=== PATIENT | female | born 1935 | race Asian ===

== ENCOUNTER → 2017-02-22 | Outpatient (CLI) | payer OTHER, MEDICAID | LOC: CIMAGING 16:25 | PROVIDERS: ATTEND Physician Assistant | DX: K59.00 Constipation, unspecified (principal) | CPT/HCPCS: 74020-PO ==

== ENCOUNTER → 2017-03-10 | Outpatient (CLI) | payer OTHER, MEDICAID | LOC: CIMAGING 11:46 → EDSTATUS 11:47 → CIMAGING 11:48 | PROVIDERS: ATTEND Family Medicine | DX: J90 Pleural effusion, not elsewhere classified (principal) | CPT/HCPCS: 71010-PO; 71020-PO ==

== ENCOUNTER → 2017-03-15 | Outpatient (CLI) | payer OTHER, MEDICAID ==
[~2017-03-15] MED LIST: IOPAMIDOL (ISOVUE 370) 100 ML BTL IV ONE
== END ==
LOC: CIMAGING 09:13
PROVIDERS: ATTEND Internal Medicine Cardiovascular Disease
DX: I77.810 Thoracic aortic ectasia (principal); J90 Pleural effusion, not elsewhere classified; Z85.3 Personal history of malignant neoplasm of breast; E04.2 Nontoxic multinodular goiter; Z99.2 Dependence on renal dialysis; Z90.11 Acquired absence of right breast and nipple
CPT/HCPCS: 71275; Q9967

== ENCOUNTER → 2017-03-24 | Outpatient (CLI) | payer OTHER, MEDICAID ==
[~2017-03-24] MED LIST changes: -IOPAMIDOL (ISOVUE 370) 100 ML BTL IV ONE; +LIDOCAINE 1% 300 MG/30 ML SDV ONE
[2017-03-24 14:13] LABS: LD, PLEURAL FLUID 329 IU/L
== END ==
LOC: FIMAGING 11:40
PROVIDERS: ATTEND Internal Medicine Pulmonary Disease
PROC: 0W9B3ZZ Drainage of Left Pleural Cavity, Percutaneous Approach (ICD-10-PCS; principal; 2017-03-24)
DX: Z13.820 Encounter for screening for osteoporosis (principal); M81.0 Age-related osteoporosis without current pathological fracture; J90 Pleural effusion, not elsewhere classified; Z85.3 Personal history of malignant neoplasm of breast; Z78.0 Asymptomatic menopausal state

== ENCOUNTER → 2017-05-16 | Outpatient (CLI) | payer OTHER, MEDICAID | LOC: CIMAGING 12:49 | PROVIDERS: ATTEND Internal Medicine Hematology & Oncology | DX: J90 Pleural effusion, not elsewhere classified (principal) | CPT/HCPCS: 71022-PO ==

== ENCOUNTER → 2017-08-31 | Outpatient (CLI) | payer OTHER, MEDICAID | LOC: CLAB 10:51 | PROVIDERS: ATTEND Internal Medicine Pulmonary Disease | DX: J90 Pleural effusion, not elsewhere classified (principal) | CPT/HCPCS: 71020-PO ==

== ENCOUNTER → 2017-09-02 | Outpatient (CLI) | payer OTHER, MEDICAID | LOC: FIMAGING 12:17 | PROVIDERS: ATTEND Family Medicine | PROC: 0W9B3ZZ Drainage of Left Pleural Cavity, Percutaneous Approach (ICD-10-PCS; principal; 2017-09-02) | DX: J90 Pleural effusion, not elsewhere classified (principal); N19 Unspecified kidney failure; Z85.3 Personal history of malignant neoplasm of breast ==

== ENCOUNTER → 2017-11-01 | Outpatient (CLI) | payer OTHER, MEDICAID | LOC: CIMAGING 13:00 | PROVIDERS: ATTEND Family Medicine | DX: N63.21 Unspecified lump in the left breast, upper outer quadrant (principal) | CPT/HCPCS: 76641-PO ==

== ENCOUNTER → 2018-01-03 | Outpatient (CLI) | payer OTHER, MEDICAID | LOC: CIMAGING 16:26 | PROVIDERS: ATTEND Family Medicine | DX: M25.521 Pain in right elbow (principal) | CPT/HCPCS: 73080-PO ==

== ENCOUNTER → 2018-02-09 | Outpatient (CLI) | payer OTHER, MEDICAID | LOC: FIMAGING 09:35 | PROVIDERS: ATTEND Physician Assistant | DX: R10.13 Epigastric pain (principal); K57.10 Diverticulosis of small intestine without perforation or abscess without bleeding ==

== ENCOUNTER → 2018-08-16 | Outpatient (CLI) | payer OTHER, MEDICAID | LOC: CIMAGING 15:45 | PROVIDERS: ATTEND Internal Medicine Pulmonary Disease | DX: J90 Pleural effusion, not elsewhere classified (principal); I50.9 Heart failure, unspecified | CPT/HCPCS: 71046-PO ==

== ENCOUNTER 2018-12-19 12:05 | Inpatient (IN) | payer OTHER, MEDICAID ==
--- NOTE | 2018-12-19 12:27 | EDPHY ---
H & P Stated Complaint: multiple complaints - fatgiued, fever, and nausea started last tuesday Time Seen by Provider: 12/19/18 12:11 HPI/ROS: 83 yo F presents c/o fatigue, shortness of breath, fever. She does M/W/F hemodialysis and missed last Tuesday and was late yesterday so missed part of dialysis. Review of systems as per hpi General pos fever and chills, pos fatigue HEENT no eye pain no eye discharge. No eye redness, no sore throat Respiratory no cough, no shortness of breath Cardiac no chest pain, no peripheral edema GI no abdominal pain, no diarrhea, no constipation, no nausea, no vomiting no flank pain, no hematuria, no dysuria Musculoskeletal no myalgias, no joint pain Heme no easy bruising, no easy bleeding Endo no polyuria, no polydipsia Skin no rashes, no pruritus Neuro no syncope, no dizziness, no headaches Psych is no suicidal ideation, no homicidal ideation Source: Patient Exam Limitations: No limitations, Language barrier - Personal History Tetanus Vaccine Date: 2008 - Medical/Surgical History Hx Asthma: No Hx Chronic Respiratory Disease: No Hx Diabetes: Yes Hx Cardiac Disease: Yes Hx Renal Disease: Yes Hx Cirrhosis: No Hx Alcoholism: No Hx HIV/AIDS: No Hx Splenectomy or Spleen Trauma: No Other PMH: MASTECTOMY R BREAST, chemo. macular degenration. htn. hypothyroidism. hyperlipidemia. alpha thalessemia trait. heart failure, chronic kidney disease, osteopenia, Diabetes Mellites II, Sciatica, Degenerative disk disease, glaucoma, H.pylori ulcer - Family History Significant Family History: No pertinent family hx - Social History Smoking Status: Never smoked Alcohol Use: None Drug Use: None - Physical Exam Exam: petite elderly F tachypneic, room air pulse ox 60s saturates in high 90s on 4 liters alopecia puffy face eomi, anicteric neck jvd lungs diminished and wheeze left base heart rrr abd nabs soft, nt back no cvat ext trace edema neuro no focal weakness Constitutional: Initial Vital Signs Temperature (C) 37.4 C 12/19/18 12:05 Heart Rate 90 12/19/18 12:05 Respiratory Rate 24 H 12/19/18 12:05 Blood Pressure 184/94 H 12/19/18 12:05 O2 Sat (%) 60 L 12/19/18 12:05 O2 Delivery Mode Room Air O2 (L/minute) 4 Allergies/Adverse Reactions: azithromycin [From Zithromax] Allergy (Verified 04/16/16 13:10) Home Medications: Medication Instructions Recorded Brimonidine 0.15% [Alphagan P 1 drops EACHEYE BID 01/04/14 0.15%] Denosumab [Prolia] 60 mg SQ .[id number] 01/04/14 Dorzolamide/Timolol [Cosopt (*)] 1 drop EACHEYE DAILY 01/04/14 Fulvestrant [Faslodex] 500 mg IM .QMONTH 01/04/14 Insulin Glulisine [Apidra] 20 - 25 unit SQ AC PRN 01/04/14 amLODIPine BESYLATE [Norvasc 5 mg 10 mg PO DAILY #30 tab 01/16/14 (*)] Multivitamins [Multivitamin (*)] 1 each PO DAILY 03/22/16 Omeprazole [Prilosec 20 mg] 20 mg PO BID 03/22/16 Acetaminophen [Tylenol 325mg (*)] 650 mg PO Q4 PRN #0 tab 03/25/16 Hydrocodone/APAP 5/325 [[place] 1 - 2 tab PO Q4 PRN #20 tab 03/25/16 5/325 (*)] Compazine 04/16/16 Dilaudid 04/16/16 Gabapentin 04/16/16 Medical Decision Making - Diagnostics Imaging Results: Imaging Impressions Chest X-Ray 12/19/18 12:20 Impression: 1. Moderate to large consolidation and/or effusion left mid to lower lung. ED Course/Re-evaluation: pt seen and evaluation begun for multiple symptoms cxr large left pleural effusion vs consolidation ekg nsr , first degree avb labs creat 4 bnp 20, 800 trop 0.25- no ischemic changes on ekg, no chest pain Influenza negative ua pending, appears cloudy Ceftriaxone first dose given to cover urine infection, and possible CAP Imp dyspnea, pleural effusion vs consolidation renal failure likely uti fluid overload Plan discussed with hospitalist admit for further evaluation and treatment Differential Diagnosis: Differential diagnosis considered but not limited to Pleural effusion, fluid overload, pneumonia, renal failure, urosepsis, urinary tract infection, influenza - Data Points Laboratory Results: 12/19/18 12/19/18 12/19/18 12:40 12:31 12:30 POC Sodium 142 mEq/L mEq/L (135-145) POC Potassium 3.9 mEq/L mEq/L (3.3-5.0) POC Chloride 98.0 mEq/L mEq/L (97-110) POC Total CO2 26 mEq/L mEq/L (22-31) POC BUN 12 mg/dL mg/dL (7-23) POC Creatinine 4.1 mg/dL H mg/dL (0.6-1.0) POC Glucose 140 mg/dL H mg/dL (70-100) POC Lactic Acid Sajan 2.7 mmol/L H mmol/L (0.7-2.1) POC Calcium 9.2 mg/dL mg/dL (8.5-10.4) Magnesium POC Total Bilirubin 0.4 mg/dL mg/dL (0.1-1.4) POC AST 45 IU/L IU/L (14-46) POC ALT 28 IU/L IU/L (9-52) POC Alk Phosphatase 97 IU/L IU/L (38-126) POC Troponin I 0.25 ng/mL H ng/mL (0.00-0.08) NT-Pro-B Natriuret Pep POC Total Protein 7.6 g/dL g/dL (6.3-8.2) POC Albumin 3.5 g/dL g/dL (3.5-5.0) Beta-Hydroxybutyrate Urine Color Urine Appearance Urine pH Ur Specific [place] Urine Protein Urine Ketones Urine Blood Urine Nitrate Urine Bilirubin Urine Urobilinogen Ur Leukocyte Esterase Urine Glucose 12/19/18 12/19/18 12:20 12:20 POC Sodium POC Potassium POC Chloride POC Total CO2 POC BUN POC Creatinine POC Glucose POC Lactic Acid Sajan POC Calcium Magnesium 2.1 mg/dL mg/dL (1.6-2.3) POC Total Bilirubin POC AST POC ALT POC Alk Phosphatase POC Troponin I NT-Pro-B Natriuret Pep 56449 pg/mL H pg/mL (0-450) POC Total Protein POC Albumin Beta-Hydroxybutyrate Pending Urine Color Pending Urine Appearance Pending Urine pH Pending Ur Specific [place] Pending Urine Protein Pending Urine Ketones Pending Urine Blood Pending Urine Nitrate Pending Urine Bilirubin Pending Urine Urobilinogen Pending Ur Leukocyte Esterase Pending Urine Glucose Pending Medications Given: Discontinued Medications Albuterol/Ipratropium (Duoneb) 3 ml IH EDNOW ONE Stop: 12/19/18 12:30 Last Admin: 12/19/18 13:16 Dose: 3 ml Ceftriaxone Sodium/Dextrose (Rocephin 1 Gm (Premix)) 50 mls @ 100 mls/hr IV EDNOW ONE PRN Reason: Protocol Stop: 12/19/18 14:00 Last Admin: 12/19/18 13:40 Dose: 50 mls Point of Care Test Results: CBC CBC Collection Date 12/19/18 CBC Collection Time 12:20 WBC 4.97 RBC 4.58 HGB 10.5 HCT 35.1 PLT 149 Neut # 4.06 Neut 81.7 LYMPH # 0.48 LYMPH 9.7 MCV 76.6 Chemistry 12/19/18 12/19/18 12:31 12:30 POC Sodium 142 mEq/L mEq/L (135-145) POC Potassium 3.9 mEq/L mEq/L (3.3-5.0) POC Chloride 98.0 mEq/L mEq/L (97-110) POC Total CO2 26 mEq/L mEq/L (22-31) POC BUN 12 mg/dL mg/dL (7-23) POC Creatinine 4.1 mg/dL H mg/dL (0.6-1.0) POC Glucose 140 mg/dL H mg/dL (70-100) POC Calcium 9.2 mg/dL mg/dL (8.5-10.4) POC Total Bilirubin 0.4 mg/dL mg/dL (0.1-1.4) POC AST 45 IU/L IU/L (14-46) POC ALT 28 IU/L IU/L (9-52) POC Alk Phosphatase 97 IU/L IU/L (38-126) POC Troponin I 0.25 ng/mL H ng/mL (0.00-0.08) POC Total Protein 7.6 g/dL g/dL (6.3-8.2) POC Albumin 3.5 g/dL g/dL (3.5-5.0) Blood Gas/Lactic Acid-Venous 12/19/18 12:40 POC Lactic Acid Sajan 2.7 mmol/L H mmol/L (0.7-2.1) Influenza PCR Flu Nasal Swab Collection Date 12/19/18 Flu Nasal Swab Collection Time 12:35 Influenza A Result Not Detected Influenza B Result Not Detected Departure - Departure Disposition: [facility] Inpatient Acute Clinical Impression: Renal failure, Pleural effusion, Chronic kidney disease, stage IV (severe) Condition: Fair
[2018-12-19] MEDS ORDERED: IPRATROPIUM/ALBUTEROL 3 ML DEYVIAL IH ONE (12:29)
--- NOTE | 2018-12-19 12:41 | CPEKG ---
Test Reason : OPEN Blood Pressure : / mmHG Vent. Rate : 082 BPM Atrial Rate : 083 BPM P-R Int : 221 ms QRS Dur : 129 ms QT Int : 455 ms P-R-T Axes : -18 -52 033 degrees QTc Int : 532 ms Sinus rhythm Prolonged GA interval Probable left atrial enlargement Right bundle branch block Inferior infarct, old Anterior infarct, old Confirmed by Huma Vila ([id number]) on 12/19/2018 12:40:33 PM Referred By: Huma Vila Confirmed By:Huma Vila
[2018-12-19] MEDS ORDERED: ASPIRIN 81 MG CHEWABLE TAB PO ONE (13:52)
[2018-12-19] MEDS ORDERED: D50W 25 GM/50 ML SYR IVP PRN (17:36)
[2018-12-19] MEDS ORDERED: ONDANSETRON DISINTEGRATING 4 MG TAB PO PRN (18:11)
[2018-12-19] MEDS ORDERED: ONDANSETRON 4 MG/2 ML VIAL IVP PRN (18:11)
[2018-12-19] MEDS: INSULIN LISPRO 100 UNIT/ML SC SCH (18:27)
[2018-12-19] MEDS ORDERED: IPRATROPIUM/ALBUTEROL 3 ML DEYVIAL IH PRN (18:28)
[2018-12-19] MEDS: ACETAMINOPHEN 325 MG TAB PO PRN (18:34)
--- NOTE | 2018-12-19 19:31 | PDGENHP ---
<Jayna Francis - Last Filed: 12/19/18 20:00> History and Physical - Chief Complaint Fatigue, fever, nausea - History of Present Illness HPI: 83 y/o female with hx of ESRD on dialysis, HTN, DM II, CHF presents as a direct admit from urgent care for fatigue, fever and nausea. This is my first encounter with the pt who was seen in her room. Fwzkyxij-pb-oed and family were at bedside with the pt. Pt speaks little Urdu, primary language is [place]. She reports progressively feeling tired and general malaise feeling. Denies vomiting. She rarely produces urine however she was found to have a UTI and was treated with PO abx the last 6-7 days. Upon arrival to urgent care she was sating in the 60s on RA and was tachypneic. She receives dialysis MWF, she missed last Tuesday and yesterday only completed 3 hours worth instead of 4 hours. She is being admitted for further treatment and monitoring. History Information - Allergies/Home Medication List Allergies/Adverse Reactions: azithromycin [From Zithromax] Allergy (Verified 04/16/16 13:10) Home Medications: Omeprazole [Prilosec 20 mg] 20 mg PO DAILY 03/22/16 [Last Taken 03/21/16] Docusate Sodium [Colace 100 MG (*)] 100 mg PO DAILY 12/19/18 [Last Taken Unknown ] Famotidine [Pepcid 20 MG (*)] 20 mg PO AD 12/19/18 [Last Taken Unknown] Gabapentin [Neurontin 100 MG (*)] 200 mg PO SUMOWEFR@21 12/19/18 [Last Taken Unknown] Prochlorperazine Maleate [Compazine 10mg (*)] 10 mg PO Q6 PRN 12/19/18 [Last Taken Unknown] amLODIPine BESYLATE [Amlodipine Besylate] 10 mg PO DAILY 12/19/18 [Last Taken Unknown] I have personally reviewed and updated: family history, medical history, social history, surgical history Past Medical History: ESRD 2/2 diabetic nephropathy, HTN, DM II, Breast CA s/p mastectomy, CHF 2/2 diastolic dysfunction - Surgical History Reports: mastectomy - Family History Additional family history: Mother in a car accident. Father is unknown. - Social History Smoking Status: Never smoked Alcohol Use: None Drug Use: None Review of Systems Review of Systems: ROS: 10pt was reviewed & negative except for what was stated in HPI & below Physical Exam Physical Exam: Lab data and imaging were reviewed. Case discussed with admitting physician, Dr. Pepe Coffman BNP: 20,800 Lactic acid: 2.1 BUN/Cr: 12/4.1 Trop: 0.25 CXR: moderate to large consolidation and/or effusion left mid to lower lung Temp Pulse Resp BP Pulse Ox 36.9 C 88 16 183/83 H 98 12/19/18 15:40 12/19/18 15:40 12/19/18 15:40 12/19/18 15:40 12/19/18 15:40 O2 (L/minute) 4 Constitutional: appears nourished, uncomfortable Eyes: PERRL, anicteric sclera, EOMI Ears, Nose, Mouth, Throat: moist mucous membranes, hearing normal, ears appear normal, no oral mucosal ulcers Cardiovascular: regular rate and rhythym, no murmur, rub, or gallop, JVD, No edema Peripheral Pulses: 2+: dorsalis-pedis (R) (Radial 2+), dorsalis-pedis (L) ( Radial 2+) Respiratory: expiratory wheeze Gastrointestinal: normoactive bowel sounds, no palpable masses, tenderness Genitourinary: no bladder fullness, no bladder tenderness Skin: warm, normal color, no rashes or abrasions, no fluctuance, no induration, other (Left fistula-heard bruit, felt "thrill"), No mottled Musculoskeletal: full muscle strength, no muscle tenderness, normal joint ROM, no joint effusions Neurologic: AAOx3, sensation intact bilaterally, CN II-XII Intact Psychiatric: interacting appropriately, not anxious, not encephalopathic, thought process linear Lymph, Heme, Immunologic: no cervical LAD, no supraclavicular LAD Lab Data & Imaging Review POC Sodium 142 mEq/L (135-145) 12/19/18 12:30 POC Potassium 3.9 mEq/L (3.3-5.0) 12/19/18 12:30 POC Chloride 98.0 mEq/L (97-110) 12/19/18 12:30 POC Total CO2 26 mEq/L (22-31) 12/19/18 12:30 POC BUN 12 mg/dL (7-23) 12/19/18 12:30 POC Creatinine 4.1 mg/dL (0.6-1.0) H 12/19/18 12:30 POC Glucose 109 mg/dL (70-100) H 12/19/18 18:13 POC Lactic Acid Sajan 2.7 mmol/L (0.7-2.1) H 12/19/18 12:40 POC Calcium 9.2 mg/dL (8.5-10.4) 12/19/18 12:30 Magnesium 2.1 mg/dL (1.6-2.3) 12/19/18 12:20 POC Total Bilirubin 0.4 mg/dL (0.1-1.4) 12/19/18 12:30 POC AST 45 IU/L (14-46) 12/19/18 12:30 POC ALT 28 IU/L (9-52) 12/19/18 12:30 POC Alk Phosphatase 97 IU/L (38-126) 12/19/18 12:30 POC Troponin I 0.25 ng/mL (0.00-0.08) H 12/19/18 12:31 NT-Pro-B Natriuret Pep 04434 pg/mL (0-450) H 12/19/18 12:20 POC Total Protein 7.6 g/dL (6.3-8.2) 12/19/18 12:30 POC Albumin 3.5 g/dL (3.5-5.0) 12/19/18 12:30 Beta-Hydroxybutyrate 0.11 mmol/L (0.02-0.27) 12/19/18 12:20 Procalcitonin 0.55 ng/mL (0.02-0.10) H 12/19/18 13:43 Urine Color YELLOW 12/19/18 12:20 Urine Appearance CLOUDY 12/19/18 12:20 Urine pH 5.5 (5.0-7.5) 12/19/18 12:20 Ur Specific [place] >= 1.030 (1.002-1.030) 12/19/18 12:20 Urine Protein 3+ (NEGATIVE) H 12/19/18 12:20 Urine Ketones TRACE (NEGATIVE) H 12/19/18 12:20 Urine Blood 1+ (NEGATIVE) H 12/19/18 12:20 Urine Nitrate NEGATIVE (NEGATIVE) 12/19/18 12:20 Urine Bilirubin TNP 12/19/18 12:20 Urine Urobilinogen 0.2 EU (0.2-1.0) 12/19/18 12:20 Ur Leukocyte Esterase 1+ (NEGATIVE) H 12/19/18 12:20 Urine RBC 5-10 /hpf (0-3) H 12/19/18 12:20 Urine WBC 50-182 /hpf (0-3) H 12/19/18 12:20 Ur Epithelial Cells 3+ /lpf (NONE-1+) H 12/19/18 12:20 Amorphous Sediment PRESENT /hpf (NONE-1+) 12/19/18 12:20 Urine Bacteria 4+ /hpf (NONE SEEN) H 12/19/18 12:20 Urine Mucus 3+ /lpf (NONE-1+) H 12/19/18 12:20 Urine Glucose NEGATIVE (NEGATIVE) 12/19/18 12:20 Assessment & Plan Plan: 83 y/o female with hx of ESRD on dialysis, DM, HTN presents from urgent care hypoxemic and fatigue and has been actively treated for UTI. #Acute hypoxemic respiratory failure 2/2 suspected consolidation and/or effusion #Urinary tract infection #Diabetes Type II #ESRD Plan -Urine and blood cultures pending -Treating UTI with ceftriaxone IV -Initiated ISS and TID glucose checks for her DM -I spoke with Dr. Donaldson (office secretary) who is aware of the pt and her need of MWF dialysis. Dialysis tomorrow. -Cont tele/pulse ox monitoring; it has been noted by RN of pauses. Consult cards in AM. STAT echo pending. Cycle EKGs and trops. -Treat symptoms conservatively with duoneb, morphine and Zofran Diet: ADA VTE ppx: SCDs Code: Full Dispo: Admit to inpatient <Pepe Morfin - Last Filed: 12/20/18 00:17> History and Physical - History of Present Illness Review of Systems Review of Systems: Physical Exam Physical Exam: Temp Pulse Resp BP Pulse Ox 36.9 C 82 18 159/119 H 98 12/19/18 23:39 12/19/18 23:39 12/19/18 23:39 12/19/18 23:39 12/19/18 23:39 O2 (L/minute) 4 Lab Data & Imaging Review POC Sodium 142 mEq/L (135-145) 12/19/18 12:30 POC Potassium 3.9 mEq/L (3.3-5.0) 12/19/18 12:30 POC Chloride 98.0 mEq/L (97-110) 12/19/18 12:30 POC Total CO2 26 mEq/L (22-31) 12/19/18 12:30 POC BUN 12 mg/dL (7-23) 12/19/18 12:30 POC Creatinine 4.1 mg/dL (0.6-1.0) H 12/19/18 12:30 POC Glucose 126 mg/dL (70-100) H 12/19/18 20:59 POC Lactic Acid Sajan 2.7 mmol/L (0.7-2.1) H 12/19/18 12:40 POC Calcium 9.2 mg/dL (8.5-10.4) 12/19/18 12:30 Magnesium 2.1 mg/dL (1.6-2.3) 12/19/18 12:20 POC Total Bilirubin 0.4 mg/dL (0.1-1.4) 12/19/18 12:30 POC AST 45 IU/L (14-46) 12/19/18 12:30 POC ALT 28 IU/L (9-52) 12/19/18 12:30 POC Alk Phosphatase 97 IU/L (38-126) 12/19/18 12:30 POC Troponin I 0.25 ng/mL (0.00-0.08) H 12/19/18 12:31 Troponin I 0.984 ng/mL (0.000-0.034) H 12/19/18 21:00 NT-Pro-B Natriuret Pep 56647 pg/mL (0-450) H 12/19/18 12:20 POC Total Protein 7.6 g/dL (6.3-8.2) 12/19/18 12:30 POC Albumin 3.5 g/dL (3.5-5.0) 12/19/18 12:30 Beta-Hydroxybutyrate 0.11 mmol/L (0.02-0.27) 12/19/18 12:20 Procalcitonin 0.55 ng/mL (0.02-0.10) H 12/19/18 13:43 Urine Color YELLOW 12/19/18 12:20 Urine Appearance CLOUDY 12/19/18 12:20 Urine pH 5.5 (5.0-7.5) 12/19/18 12:20 Ur Specific [place] >= 1.030 (1.002-1.030) 12/19/18 12:20 Urine Protein 3+ (NEGATIVE) H 12/19/18 12:20 Urine Ketones TRACE (NEGATIVE) H 12/19/18 12:20 Urine Blood 1+ (NEGATIVE) H 12/19/18 12:20 Urine Nitrate NEGATIVE (NEGATIVE) 12/19/18 12:20 Urine Bilirubin TNP 12/19/18 12:20 Urine Urobilinogen 0.2 EU (0.2-1.0) 12/19/18 12:20 Ur Leukocyte Esterase 1+ (NEGATIVE) H 12/19/18 12:20 Urine RBC 5-10 /hpf (0-3) H 12/19/18 12:20 Urine WBC 50-182 /hpf (0-3) H 12/19/18 12:20 Ur Epithelial Cells 3+ /lpf (NONE-1+) H 12/19/18 12:20 Amorphous Sediment PRESENT /hpf (NONE-1+) 12/19/18 12:20 Urine Bacteria 4+ /hpf (NONE SEEN) H 12/19/18 12:20 Urine Mucus 3+ /lpf (NONE-1+) H 12/19/18 12:20 Urine Glucose NEGATIVE (NEGATIVE) 12/19/18 12:20 Assessment & Plan Assessment: 83 year old female with ESRD On HD sent for evaluation of hypoxia, confusion, and chest pain. Troponins iniatially only mildly elevated but rising on repeat, CXR with effusion, and consolidation and patient with substantial wheezing on examination. Patient did dialyze yesterday but likely needs hemodialysis in the morning. Would treat for pneumonia with Rocephin and is at her which would offer also cover for possible urinary tract infection. Would also consult IR for ultrasound-guided thoracentesis. Given her elevated troponin started heparin drip and continue cycle troponins. Other issues per Hue Francis NP.
[2018-12-20] MEDS ORDERED: HEPARIN 10,000 UNIT/10 ML MDV (1,000 UNIT/ML) IVP PRN (00:12)
[2018-12-20] MEDS ORDERED: AZITHROMYCIN IV 500 MG in NS 250 ML IV SCH (00:12)
[2018-12-20] MEDS ORDERED: HEPARIN/DEXTROSE 500 ML IV SCH (00:15)
[2018-12-20 00:54] LABS: INR 1.13 (0.83-1.16); PROTIME(PATIENT) 14.7 SEC (12.0-15.0)
[2018-12-20 00:55] LABS: PLATELET COUNT 127 10^3/uL (150-400)
[2018-12-20 05:23] LABS: PLATELET COUNT 128 10^3/uL (150-400)
--- NOTE | 2018-12-20 08:33 | PDMN ---
Medical Necessity Medical necessity: Pt meets inpt criteria per MD order and MCG M-540, Pleural Effusion, A-2 days. 83 y/o w/ESRD on dialysis presents to ED from Urgent care w/ hypoxemia, fatigue, and currently being treated for UTI, admitted w/AHRF (O2 sats in 60's on RA upon arrival) likely secondary to mod- large consolidation and/or effusion to L mid to lower lung as seen on CXR, elevated troponins trending up, and ongoing UTI despite out pt ABX therapy. IV ABX's, IV heparin, IV antiemetics, 4L suppl O2, may need US guided thoracentesis, cardiology and nephrology consults pending, bl and urine cultures pending. Anticiapte>2MN for ongoing eval/management of above.
--- NOTE | 2018-12-20 09:36 | ASMTLACE ---
CBE Acuity / Level of Answers: Yes Care: Did the patient have an inpatient admission? Comorbidities - select Answers: Congestive heart failure all that apply Diabetes (uncontrolled or controlled) Moderate or severe liver or renal disease Opioid dependence / Chronic pain Other Notes: HTN; HLD # of Emergency department Answers: 1-2 visits in the last 6 months Score: 16 Date Signed: 12/20/2018 09:35 AM Electronically Signed By:Ina Richardson
--- NOTE | 2018-12-20 10:27 | GCON ---
[f rep st] CONSULTATION DATE OF CONSULTATION: 12/20/2018 REASON FOR CONSULTATION: Opinion regarding end-stage kidney failure. HISTORY OF PRESENT ILLNESS: Ms. Reis is a very pleasant 83-year-old female who speaks no Fijian, a nd I do not speak her dialect of [place]ian, the information came through her daughter who speaks exce llent Fijian. Ms. Reis was in her usual state of health until about 7-10 days ago when she began having a urinary tract infection. She was treated with antibiotics. She had dialysis 1 week ago, missed on Tuesday an d had a truncated dialysis on Tuesday. Her daughter was out of town, but when she came back yesterday , her mother was not feeling well and looked poorly as well. She was brought to the Emergency Depart ment, had a urinary tract infection and possible pneumonia. She was admitted for further evaluation and management. REVIEW OF SYSTEMS: Is not obtainable from the patient. The daughter says she had not been having fe vers, chills, nausea or vomiting, chest pain. She did have shortness of breath and some cough. No s putum, hemoptysis, hematemesis, epistaxis, abdominal pain, diarrhea or constipation. PAST MEDICAL HISTORY: 1. End-stage kidney failure on 1-ltreh-itpggu dialysis. 2. Hypertension. 3. Type 2 diabetes. ALLERGIES: None, she may have had some upset stomach with azithromycin in the past. FAMILY HISTORY: Negative for renal failure. SOCIAL HISTORY: She does not use tobacco, alcohol, intravenous or recreational drugs. She is [place] and does not speak Fijian. REVIEW OF SYSTEMS: A complete 12-point review of systems was performed with pertinent positives and negatives as per the previous sections. PHYSICAL EXAMINATION: GENERAL: She is ill-appearing, but she is arousable and becomes alert. HEENT : Pupils are reactive to light. Extraocular movements are intact. Mucous membranes are moist. NEC K: She does have some mild JVD. No lymphadenopathy. CARDIOVASCULAR: Heart is regular, grade 1/6 s ystolic murmur. LUNGS: Bilateral rales. No rhonchi. Occasional wheezing. ABDOMEN: Bowel sounds positive. Soft, nontender, nondistended. EXTREMITIES: Positive for lower extremity edema. No cyan osis or clubbing. NEUROLOGIC: No asterixis. SKIN: Occasional bruising with no palpable lymphadeno nabor or lymphedema. MUSCULOSKELETAL: No effusions or tenderness. LABORATORY: Serum sodium is 135, potassium 3.9, chloride 99, CO2 28, BUN 23, creatinine 5.4, glucose 96, calcium 8.6, AST 70, ALT 59, alkaline phosphatase 95. WBC 3.9, hemoglobin 9.7, hematocrit 32, p latelet count 128,000. INR 1.13. Troponin 0.984 initially, now, up to 1.120. Procalcitonin is elev ated at 0.55. Urinalysis: Specific gravity greater than 1.030, pH 5.5, +3 protein, +1 blood, +4 xin teria. IMPRESSION: 1. End-stage kidney failure on [id number] dialysis, 2 of the last 3 dialysis treatments have bee n either truncated or missed. 2. Volume overload. 3. Possible pneumonia. 4. Urinary tract infection. 5. Diabetes. 6. Hypertension. RECOMMENDATIONS: 1. She is currently on azithromycin and Rocephin as well as albuterol for her UTI and pneumonia. 2. Hemodialysis today. 3. Ultrafiltration. 4. Continue her current therapies. Thank you for allowing me to participate in the care of your patient, Kirstie Reis. If there are any qu estions, please do not hesitate to contact us. We will be following along with you. /[id number]/MODL
[2018-12-20] MEDS: INSULIN LISPRO 100 UNIT/ML SC SCH ×3 (10:29→18:16)
--- NOTE | 2018-12-20 11:51 | ECHO ---
[email or web address] [address] Main: [phone] Fax: Transthoracic Echocardiogram Name: ADY GROSS MR#: [id number] Study Date: 12/19/2018 Study Time: 07:25 PM Date of : 1935 Age: 83 year(s) Height: 144.8 cm (57 in.) Weight: 55.79 kg (123 lb.) BSA: 1.46 m2 Gender: Female Examination: Echo Indication: Shortness of breath, fatigue Image Quality: Adequate Contrast: Requested by: Jayna Francis BP: 163 mmHg/107 mmHg Heart Rate: Rhythm: Indication: Shortness of breath, fatigue Procedure Staff Certified Pharmacy Technician: Pattie Snow RD Reading Physician: Renae Godwin MD Requesting Provider: Conclusions: Normal size left ventricle. Mild concentric LV hypertrophy. The ejection fraction is estimated to be 45-50 %. Grade 2 diastolic dysfunction (pseudonormalized LV filling pattern). Mid inferoseptal hypokinesis. Normal size right ventricle. Normal RV function. The left atrium is mildly dilated. Mild mitral annular calcification. Mild mitral valve regurgitation is present. Mild mitral valve stenosis is present. Mild to moderate tricuspid valve regurgitation. Right ventricular systolic pressure measures 34mmHg. Trivial pericardial effusion. There is a pleural effusion present. There is no previous echocardiogram for comparison. Measurements: Chambers Valvular Assessment AV/MV Valvular Assessment TV/PV Normal Normal Normal Name Value Range Name Value Range Name Value Range Ao Lyla (2D): 2.5 cm (1.4 cm-2.6 AV Vmax: 1.54 m/s (1 m/s-1.7 TR Vmax: 2.67 mm/s ( - ) cm) m/s) TR PGmax: 29 mmHg ( - ) IVSd (2D): 1.1 cm (0.6 cm-1.1 AV maxP mmHg ( - ) syst. PAP: 34 mmHg ( - ) cm) AV meanP mmHg ( - ) PV Vmax: 0.99 m/s (0.6 m/s-0.9 LVDd (2D): 4.2 cm (3.9 cm-5.3 KARAN (VTI): 1.4 cm ( - ) m/s) cm) MV E Vmax: 1.16 m/s ( - ) PV PGmax: 4 mmHg ( - ) LVDs (2D): 3.2 cm (2.1 cm-4 MV A Vmax: 1.32 m/s ( - ) cm) MV E/A: 0.88 ( - ) LVPWd (2D): 1.0 cm ( - ) MV meanP mmHg ( - ) Patient: ADY GROSS Study Date: 12/19/2018 Page 1 of 2 07:25 PM LVOTd 1.8 cm 1.8 cm mm MV PHT: 0.047 s ( - ) LVEF (BP): 56 % (>=55 %) MVA (Vmax): 1.6 m/s ( - ) EF Range: 45-50 % MVA (PHT): 4.7 s ( - ) RVDd(2D): 2.9 cm (1.9 cm-3.8 cmmm) Continued Measurements: Chambers Valvular Assessment AV/MV Valvular Assessment TV/PV Name Value Name Value Name Value LADs: 3.5 cm MV DecTime: 151 m/s CVP (est.): 5 mmHg LADs Lon.9 cm MV E' Septal: 0.06 m/s LA Area: 20.0 cm2 MV E/E' Septal: 20.20 LA Volume: 58 ml MV E/E' Lateral: 18.60 LA Volume Index: 39.7 ml/m2 MV VTI: 30.00 cm RA Area: 13.1 cm2 Additional Vessels Name Value Ao Ascendin.4 cm Inferior Vena Cava: 1.9 cm Findings: Left Ventricle: Normal size left ventricle. Mild concentric LV hypertrophy. Mildly reduced systolic LV function. The ejection fraction is estimated to be 45-50 %. Grade 2 diastolic dysfunction (pseudonormalized LV filling pattern). Mid inferoseptal hypokinesis. Right Ventricle: Normal size right ventricle. Normal RV function. Left Atrium: The left atrium is mildly dilated. Right Atrium: The right atrium is normal in size. Mitral Valve: The mitral valve is normal in appearance and function. Mild mitral annular calcification. Mild mitral valve regurgitation is present. Mild mitral valve stenosis is present. Aortic Valve: The aortic valve is tri-leaflet. No aortic valve stenosis is present. Trivial aortic valve regurgitation. Tricuspid Valve: The tricuspid valve is normal in appearance and function. Mild to moderate tricuspid valve regurgitation. The pulmonary artery pressure is normal. Right ventricular systolic pressure measures 34mmHg. Tricuspid regurgitation is eccentric. Pulmonic Valve: The pulmonic valve is normal in appearance and function. Aorta: The aorta is normal. Normal size aortic root measuring 2.5 cm. Normal size ascending aorta measuring 3.4 cm. IVC: The IVC is normal sized. Pericardium: Trivial pericardial effusion. There is pericardial fat. There is a pleural effusion present. (No Signature Object) Patient: ADY GROSS Study Date: 12/19/2018 Page 2 of 2 07:25 PM [id number]
[2018-12-20] MEDS ORDERED: NS 500 ML IV PRN (13:56)
[2018-12-20] MEDS ORDERED: EPOETIN ALFA 10,000 UNIT/ML VIAL SC SCH (13:57)
[2018-12-20] MEDS ORDERED: EPOETIN ALFA 10,000 UNIT/ML VIAL SC ONE (14:00)
[2018-12-20] MEDS: METOPROLOL SUCCINATE XR 25 MG TAB PO SCH (14:15)
[2018-12-20] MEDS: ATORVASTATIN CALCIUM 20 MG TAB PO SCH (14:15)
[2018-12-20] MEDS: ASPIRIN 81 MG CHEWABLE TAB PO SCH (14:15)
--- NOTE | 2018-12-20 14:28 | ASMTCMCOM ---
CM Note CM Note Notes: Pt is an 83 yo F, presents with pleural effusion, dyspenea, renal failure and positive trop. Pt's primary language is [place], speaks limited Israeli. Chart reviewed and pt discussed in rounds for discharge planning. Pt has a supportive family. PT evals pending. Plan: TBD Date Signed: 12/20/2018 02:27 PM Electronically Signed By:JAS Hussein
[2018-12-20] MEDS: ACETAMINOPHEN 325 MG TAB PO PRN ×2 (14:30→22:38)
[2018-12-20] MEDS ORDERED: IOPAMIDOL (ISOVUE-300) 100 ML BTL ONE (16:55)
--- NOTE | 2018-12-20 17:00 | HOSPPROG ---
Hospitalist Progress Note Assessment/Plan: 83 yo F w esrd a/w shortness of breath, L sided efusion/infiltrate, + trop w abnl ekg and wma cad: no known cad not clear that this is ACS and trop may be demand or toxic in setting of medical illness that said, very high likelihood of cad 1. stop heparin at 12 a 2. cardiology has seen, needs ischemic eval 3. trop trending down LLL infiltrate: 1. chest CT 2. thoracentesis in AM 3. h/o breast CA noted, send cytology 4. treat as CAP, shlomo hoffmann esrd: HD on schedule uti: unlikely anemia: check Fe studies epo dispo: inpt Subjective: case d/w dr day. chest images reviewed/interp by me Objective: Vital Signs Temp Pulse Resp BP Pulse Ox 37.4 C 95 18 150/67 H 94 12/20/18 14:33 12/20/18 14:33 12/20/18 14:33 12/20/18 14:33 12/20/18 14:33 Laboratory Results 12/20/18 05:10 12/20/18 05:10 12/19/18 12/20/18 12/21/18 05:59 05:59 05:59 Intake Total 400 Output Total 100 Balance 300 PT 14.7 SEC (12.0-15.0) 12/20/18 00:28 INR 1.13 (0.83-1.16) 12/20/18 00:28 - Physical Exam Constitutional: no apparent distress, appears nourished Eyes: PERRL, anicteric sclera Ears, Nose, Mouth, Throat: moist mucous membranes, hearing normal Cardiovascular: regular rate and rhythym, no murmur, rub, or gallop Respiratory: other (absent breath sounds at L base. good air movement on R) Gastrointestinal: normoactive bowel sounds, soft, non-tender abdomen Genitourinary: no bladder fullness, No burroughs in urethra Skin: warm, normal color Musculoskeletal: full muscle strength Neurologic: AAOx3 ICD10 Worksheet Patient Problems: Problems Problem Status Onset Chronic kidney disease, stage IV (severe) Acute Pleural effusion Acute Renal failure Acute Altered mental status Acute CHF (congestive heart failure) Acute Chronic Disease Mgmt/Transitional Care Acute Delirium Acute Edema Acute Palliative care encounter Acute
--- NOTE | 2018-12-20 19:07 | GCON ---
[f rep st] CONSULTATION CARDIOLOGY CONSULT CHIEF COMPLAINT: Dyspnea and positive troponin. HISTORY OF PRESENT ILLNESS: We were asked by Dr. Cantu to visit with the patient. The patient is an 83-year-old female who speaks the Hmong dialect. History is from chart review and discussion with t he patient's daughter who is at the bedside and speaks Occitan fluently. The patient has a history of hypertension, diabetes, end-stage renal disease, on dialysis, mildly dil ated ascending aorta, and right bundle branch block with left anterior fascicular block. She was adm itted from the emergency department last evening with weakness, malaise, hypoxia, and reported fever at home. She was found to have a minimally elevated troponin, large left pleural effusion, and evide nce of ongoing urinary tract infection. The week prior, she had been diagnosed with UTI and started on oral Bactrim. She missed dialysis las t Tuesday and then had a truncated session last Tuesday, so therefore her daughter reports that she did appear to have some abdominal bloating and facial edema. The patient has not had anginal-quality chest pain but has been coughing for 4 days productive of whi te phlegm. She does have chest pain when she coughs. She is somewhat dyspneic. She denies lower ex tremity edema. She gives no history of known coronary disease and did have a normal myocardial perfu belia study at [facility] in 2017. Because of her pleural effusion and dyspnea, she did have an ec hocardiogram last night which I personally reviewed. This shows a decrement in her ejection fraction compared to 2011. EF currently 45% to 50% with inferoseptal hypokinesis that is new compared with 2 011. Mild mitral, [id number]-jbfdfruc tricuspid regurgitation, with normal estimated pulmonary pressure . Pleural effusion noted. Because of her abnormal echo and mildly elevated troponin, we were asked for further management. ALLERGIES: Azithromycin. PAST MEDICAL HISTORY: 1. Hypertension. 2. End-stage renal disease, on dialysis. 3. Diabetes. 4. Heart failure. 5. Mildly dilated ascending aorta measuring 3.8 cm on [address] 6. Abnormal EKG with history of right bundle branch block and left anterior fascicular block. 7. DJD of the spine. 8. Thyroid nodule. 9. History of breast cancer, status post right mastectomy. 10. Alpha thalassemia trait. MEDICATIONS: Outpatient medications are reviewed and not repeated here. SOCIAL HISTORY: The patient has family very involved in her care. She does not smoke cigarettes or drink alcohol. FAMILY HISTORY: Not applicable to the current case. PHYSICAL EXAM: VITAL SIGNS: Blood pressure 143/74, heart rate 84, oxygen saturation is 99% on 4 L n debbie cannula. She is afebrile and has been since her admission yesterday afternoon. GENERAL: This is a chronically ill-appearing, elderly female. She appears fatigued but in no acute distress. HEEN T: Dentition is poor. Sclerae nonicteric. Normocephalic, atraumatic. CARDIAC: JVP is approximate ly 12 cm of water. Regular rate and rhythm with soft systolic ejection murmur at the base. LUNGS: Decreased breath sounds at the left base. Occasional rhonchi. Intermittent coughing throughout the exam. ABDOMEN: Soft and nontender without obvious bruits, masses, or hepatosplenomegaly. EXTREMITI ES: Warm, well perfused, without cyanosis, clubbing, or edema. NEUROPSYCH: She is oriented but fat igued. She answers questions with limited but does seem to follow the conversation when h er daughter translates. No gross focal neurologic deficits. LABORATORY DATA: White count 3.9, hematocrit 31.9, platelets are 128. INR 1.1. Sodium 135, potassi um 3.9, chloride 99, bicarb , BUN 23, creatinine 5.4, glucose is 96. Troponin 0.98 yesterd ay evening and then 1.12 at 5 this morning. Procalcitonin elevated at 0.55. BNP 20,800. AST 70, AL T 59, alk phos normal at 95, total bilirubin 0.4. Lactate 2.7. Urine culture shows greater than 100,000 gram-negative rods. EKG reviewed by me: Sinus rhythm with right bundle branch block and left anterior fascicular block. Overall unchanged compared with previous. No definite ischemic changes. Echocardiogram reviewed by me and detailed per the history of present illness. Chest x-ray reviewed by me: Large left pleural effusion. ASSESSMENT AND PLAN: An 83-year-old female with multiple cardiac risk factors including hypertension , diabetes, end-stage renal disease, on dialysis, now presents with hypoxia, pleural effusion, elevat ed troponin, ongoing urinary tract infection, and possible pneumonia. I do think that her initial ph ysiological insult was urinary tract infection compounded by less than her usual dialysis, causing vo lume overload. I believe she had a type 2 myocardial infarction and not primary acute coronary syndr ome. 1. Positive troponin: As mentioned above, likely type 2 myocardial infarction. I think she is not an ideal cardiac catheterization candidate given her end-stage renal disease, frailty, ongoing medica l problems with active infection. Given that she is not hemodynamically unstable, does not have sign ificant ST deviation on EKG, and is currently not having anginal chest pain, would opt for medical st abilization and medical management of her presumed coronary disease. To this end, she will continue heparin. I have added low-dose aspirin. Careful attention to possible bleeding. I have also added low-dose statin and beta bel. Apparently in the past, she has had some episodes of Wenckebach, s o we will follow her on telemetry. She does have conduction system disease on her EKG, so again we w ill follow on telemetry. I did discuss with the daughter options of catheterization versus _ versus simply conservative management. At this point, would favor conservative management. We holly l follow along during this hospitalization. 2. Heart failure and cardiomyopathy: Volume status should be improved with dialysis. I do not thin k she makes much urine, so we will not start Lasix. We will add Toprol for her cardiomyopathy. Coul d consider ROSANGELA inhibitor, but we will hold for now. 3. Hypertension: Add beta bel. She does take amlodipine, as well, as an outpatient which is cu rrently on hold but could be restarted. 4. Diabetes: Per Internal Medicine. 5. End-stage renal disease and dialysis: Per Renal. 6. Conduction system disease on EKG: No history of syncope. Follow on telemetry. Watch carefully in the setting of low-dose beta bel therapy. Thank you for allowing us to participate in this patient's care. We will follow with you. /[id number]/MODL
[2018-12-20] MEDS ORDERED: LIDOCAINE 1% *Not for Epidural 20 ML MDV ONE (19:24)
[2018-12-20] MEDS: DOXYCYCLINE HYCLATE 100 MG CAP/TAB PO SCH (20:39)
[2018-12-21 05:53] LABS: PLATELET COUNT 129 10^3/uL (150-400)
[2018-12-21] MEDS: ACETAMINOPHEN 325 MG TAB PO PRN ×2 (08:15→16:04)
[2018-12-21] MEDS: ATORVASTATIN CALCIUM 20 MG TAB PO SCH (08:16)
[2018-12-21] MEDS: DOXYCYCLINE HYCLATE 100 MG CAP/TAB PO SCH ×2 (08:16→20:32)
[2018-12-21] MEDS: METOPROLOL SUCCINATE XR 25 MG TAB PO SCH (08:17)
[2018-12-21] MEDS: ASPIRIN 81 MG CHEWABLE TAB PO SCH (08:17)
[2018-12-21] MEDS: INSULIN LISPRO 100 UNIT/ML SC SCH ×3 (09:00→18:10)
--- NOTE | 2018-12-21 09:39 | SOAPPROG ---
SOAP Progress Note Assessment/Plan: Assessment: 1. ESRD Pt dialyzes MWF at the [facility] under Dr. Donaldson. I reviewed with unit. Her weight gains have been good. She does tend to skip dialysis 1-2 times weekly. Her access function has been ok. She is on for tomorrow. 2. Hx Breast Cancer She follows with oncology 3. Pleural effusion Diagnostic and therapeutic tap today. 4. Systolic Heart Failure, Wall motion abnormalities, Conduction disease, NSTEMI Dr. Godwin seeing. Plan on additional investigation pending other medical issues 5. ID UTI vs Pneumonia. On Antibiotics Plan: 12/21/18 09:35 12/21/18 09:39 Objective: Cough and pleuritic CP, otherwise no complaint Vital Signs Temp Pulse Resp BP Pulse Ox 37 C 67 16 179/74 H 100 12/21/18 08:00 12/21/18 08:17 12/21/18 08:00 12/21/18 08:17 12/21/18 08:00 Laboratory Results 12/21/18 04:32 12/21/18 04:32 12/20/18 12/21/18 12/22/18 05:59 05:59 05:59 Intake Total 400 200 Output Total 100 Balance 300 200 PT 14.7 SEC (12.0-15.0) 12/20/18 00:28 INR 1.13 (0.83-1.16) 12/20/18 00:28 Ms Good Lungs dim'd R base, CTA apex RRR Abd soft Trace LE edema - Time Spent With Patient Time Spent With Patient: 30 ICD10 Worksheet Patient Problems: Problems Problem Status Onset Chronic kidney disease, stage IV (severe) Acute Pleural effusion Acute Renal failure Acute Altered mental status Acute CHF (congestive heart failure) Acute Chronic Disease Mgmt/Transitional Care Acute Delirium Acute Edema Acute Palliative care encounter Acute
[2018-12-21] MEDS ORDERED: LIDOCAINE 1% 300 MG/30 ML SDV ONE (12:05)
--- NOTE | 2018-12-21 14:55 | PDCARPN ---
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 She was admitted on 12/19 with weakness and volume overload having missed dialysis the week prior. There is also some question of UTI and or pneumonia. During her evaluation she was found to have recurrent left pleural effusion that has now been drained. Echocardiogram shows mildly depressed ejection fraction 45% with mild inferoseptal hypokinesis. Peak troponin 1.1. 1. Non ST-elevation MT and new decrement in ejection fraction: She does have coronary disease on the basis of coronary artery calcification. She is currently without cardiac symptoms and EKG nonischemic. Would favor ongoing medical management of her coronary disease/non STEMI. Could consider further risk stratification with nuclear stress test versus cardiac catheterization depending on the results of her pleural fluid analysis. She is now on Toprol, aspirin, statin. Will restart Norvasc for improved blood pressure control. 2. End-stage renal disease on hemodialysis: Her volume status is managed by dialysis. 3. Pleural effusion: This may be related to heart failure. Cytology and other labs pending. She does feel better after thoracentesis. 4. Hypertension: Currently suboptimally controlled. Continue low-dose metoprolol with careful attention to her rhythm given her conduction system disease on EKG. Start low-dose Norvasc. She was on Norvasc 10 mg as an outpatient, so this could be up titrated. 5. Abnormal EKG with right bundle branch block and left anterior fascicular block. This is known. In the past she has had documented Wenckebach. I do see a brief period of second-degree heart block on telemetry, unclear if this is type 1 or type 2 heart block because it is 2:1. Will have to follow closely in the setting of beta-bel therapy. 12/21/18 14:55 Subjective: Translation via the patient's family at bedside. They report she is feeling quite a bit better after diagnostic and therapeutic left-sided thoracentesis earlier today. 700 cc of fluid was removed. Cytology pending. She reports less discomfort. She denies dyspnea or anginal chest pain. She ambulated today without lightheadedness. Reviewed/Discussed With: family Objective: Vital Signs (8 Hrs) Temp Pulse Resp BP Pulse Ox 12/21/18 13:44 62 14 182/74 H 100 12/21/18 12:00 37 C 14 162/67 H 98 12/21/18 08:17 67 179/74 H 12/21/18 08:00 37 C 67 16 179/74 H 100 Intake/Output (24 Hrs) 12/20/18 12/21/18 12/22/18 05:59 05:59 05:59 Intake Total 400 200 Output Total 100 700 Balance 300 200 -700 Intake: Oral (ml) 340 200 IV Infused (ml) 60 Output: Urine (ml) 100 Toilet 100 Thoracentesis 700 Other: Weight 54.386 kg 52.6 kg Fatigued. No acute distress JVP 12 cm of water. Regular rate and rhythm with soft early systolic murmur at the left lower sternal border. Improved aeration left base, still slightly decreased in that area. No wheezes or rales No lower extremity edema Result Diagrams: 12/21/18 04:32 12/21/18 04:32 Cardiac Labs: Cardiac Lab Results (72 Hrs) 12/20/18 12/20/18 12/19/18 13:38 05:10 21:00 Troponin I 1.110 H 1.120 H 0.984 H Telemetry: Sinus rhythm. Occasional PVCs. Brief. Around 1:00 a.m. Of second-degree heart block. This is 2-1 so not sure if it is Mobitz 1 or Mobitz 2. ICD10 Worksheet Patient Problems: Problems Problem Status Onset Chronic kidney disease, stage IV (severe) Acute CHF (congestive heart failure) Acute Edema Acute Chronic Disease Mgmt/Transitional Care Acute Altered mental status Acute Delirium Acute Palliative care encounter Acute Renal failure Acute Pleural effusion Acute
--- NOTE | 2018-12-21 16:09 | HOSPPROG ---
Hospitalist Progress Note Assessment/Plan: 83 yo F w esrd a/w shortness of breath, L sided efusion/infiltrate, + trop w abnl ekg and wma cad: no known cad not clear that this is ACS and trop may be demand or toxic in setting of medical illness that said, very high likelihood of cad lexiscan 12/22 LLL infiltrate: more effusion that infiltrate 1. peural fluid bland but exudate 2. 5 days abx 3. probably from heart failure encephalopathy: much improved esrd: HD on schedule uti: unlikely anemia: check Fe studies epo dispo: inpt, possibly home 12/22 Subjective: case d/w dr day. cxr w improved LLL aeration (interp by me). remarkably better after thoracentesis Objective: Vital Signs Temp Pulse Resp BP Pulse Ox 37 C 62 14 182/73 H 100 12/21/18 12:00 12/21/18 13:44 12/21/18 13:44 12/21/18 15:08 12/21/18 13:44 Laboratory Results 12/21/18 04:32 12/21/18 04:32 12/20/18 12/21/18 12/22/18 05:59 05:59 05:59 Intake Total 400 200 Output Total 100 700 Balance 300 200 -700 PT 14.7 SEC (12.0-15.0) 12/20/18 00:28 INR 1.13 (0.83-1.16) 12/20/18 00:28 - Physical Exam Constitutional: no apparent distress, appears nourished Eyes: PERRL, anicteric sclera Ears, Nose, Mouth, Throat: moist mucous membranes, hearing normal Cardiovascular: regular rate and rhythym, no murmur, rub, or gallop Respiratory: no respiratory distress, no rales or rhonchi Gastrointestinal: normoactive bowel sounds, soft, non-tender abdomen Genitourinary: no bladder fullness, No burroughs in urethra Skin: warm, normal color Musculoskeletal: full muscle strength Neurologic: AAOx3 ICD10 Worksheet Patient Problems: Problems Problem Status Onset Chronic kidney disease, stage IV (severe) Acute Pleural effusion Acute Renal failure Acute Altered mental status Acute CHF (congestive heart failure) Acute Chronic Disease Mgmt/Transitional Care Acute Delirium Acute Edema Acute Palliative care encounter Acute
[2018-12-22 04:24] LABS: PLATELET COUNT 131 10^3/uL (150-400)
--- NOTE | 2018-12-22 07:43 | SOAPPROG ---
SOAP Progress Note Assessment/Plan: Assessment: #ESRD- [facility] MWF -HD today -frequently misses HD as outpt #abnormal EKG and +troponin -plans for lexiscan today, no cp currently #Metastatic breast CA -ongoing f/u oncology- daughter reports recent PET was stable #pleural effusion -s/p thoracentesis 12/21., studies pending #anemia CKD- -hb at goal -need to clarify if receiving TAMARA as outpt given malignancy #MBD of CKD -check phos am labs, renal diet -not on binder #UTI -GNR in culture, blood Cx NGTD -on ceftriaxone I am welcome wagon hostess for weekend Snehal Frost MD [facility] pager [phone] 12/22/18 07:40 Subjective: Denies cp, sob. Plans for stress test today. No n/v. says she is feeling much better, juanita after thoracentesis. Daughter at bedside and I updated her. Objective: Vital Signs Temp Pulse Resp BP Pulse Ox 36.8 C 68 20 139/59 H 98 12/22/18 04:00 12/22/18 04:00 12/22/18 04:00 12/22/18 04:00 12/22/18 04:00 Microbiology 12/21/18 13:00 Gram Stain - Final Thoracic Fluid - Aspirate Laboratory Results 12/22/18 03:40 12/22/18 03:40 12/21/18 12/22/18 12/23/18 05:59 05:59 05:59 Intake Total 200 920 Output Total 700 Balance 200 220 PT 14.7 SEC (12.0-15.0) 12/20/18 00:28 INR 1.13 (0.83-1.16) 12/20/18 00:28 Physical Exam - Physical Exam General Appearance: no apparent distress, other (not tachypneic, on O2 by NC) EENT: other (mmm) Neck: supple Respiratory: normal breath sounds (but decreased at L base ) Cardiac/Chest: regular rate, rhythm, other (no rub) Abdomen: normal bowel sounds, non-tender, soft Skin: warm/dry Extremities: other (trace LE edema ,AVF with good thrill/bruit) Neuro/Psych: alert, oriented x 3 ICD10 Worksheet Patient Problems: Problems Problem Status Onset Chronic kidney disease, stage IV (severe) Acute Pleural effusion Acute Renal failure Acute Altered mental status Acute CHF (congestive heart failure) Acute Chronic Disease Mgmt/Transitional Care Acute Delirium Acute Edema Acute Palliative care encounter Acute
[2018-12-22] MEDS: ACETAMINOPHEN 325 MG TAB PO PRN (08:07)
[2018-12-22] MEDS: INSULIN LISPRO 100 UNIT/ML SC SCH ×3 (08:35→16:59)
[2018-12-22] MEDS: ATORVASTATIN CALCIUM 20 MG TAB PO SCH (10:14)
[2018-12-22] MEDS: ASPIRIN 81 MG CHEWABLE TAB PO SCH (10:14)
[2018-12-22] MEDS: DOXYCYCLINE HYCLATE 100 MG CAP/TAB PO SCH ×2 (10:14→21:45)
[2018-12-22] MEDS: METOPROLOL SUCCINATE XR 25 MG TAB PO SCH (10:18)
[2018-12-22] MEDS ORDERED: REGADENOSON 0.4 MG/5 ML SYR IVP ONE (10:57)
--- NOTE | 2018-12-22 11:27 | PDCARST ---
CAR Stress Test Results Type of Stress Test: Lexiscan stress test Indication: cp Description of Procedure: After informed consent was obtained, pt was established to ECG, blood pressure, HR and oximetry monitoring. STRESS EKG AND HEMODYNAMIC DATA. Resting heart rate: 66 BPM. Resting ECG: SR, 1st deg AVB, RBBB. Resting blood pressure: 162/60 mmHg. O2 saturation at rest: 100% on 2 lpm. Peak heart rate: 72 BPM. Peak blood pressure: 150/60 mmHg. Arrhythmias: none. Symptoms: The patient experienced no typical symptoms of angina during stress or recovery. Stress/Infusion ECG: No change in rhythm with no significant ST/T wave changes. Stress/infusion O2 saturation: Impression: Uneventful Lexiscan infusion with typical side effects of Lexiscan Conclusion: Await nuclear imaging.
[2018-12-22] MEDS ORDERED: amLODIPine BESYLATE 5 MG TAB PO ONE ×2 (11:30→17:15)
--- NOTE | 2018-12-22 14:48 | PDCARPN ---
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 She was admitted on 12/19 with weakness and volume overload having missed dialysis the week prior. There is also some question of UTI and/or pneumonia. During her evaluation she was found to have recurrent left pleural effusion that has now been drained. Echocardiogram shows mildly depressed ejection fraction 45% with mild inferoseptal hypokinesis. Peak troponin 1.1. 1. Non ST-elevation NE and new decrement in ejection fraction: She does have coronary disease on the basis of coronary artery calcification. She is currently without cardiac symptoms and EKG nonischemic. Her MPI study today ( personally reviewed by me) shows small septal infarct without ischemia. Would favor ongoing medical management of her coronary disease/non STEMI. Could consider further risk stratification with nuclear stress test versus cardiac catheterization depending on the results of her pleural fluid analysis. She is now on aspirin, statin. Will uptitrate Norvasc for improved blood pressure control. Did not tolerate Toprol (second degree HB). 2. End-stage renal disease on hemodialysis: Her volume status is managed by dialysis. 3. Pleural effusion, left sided and recurrent: This may be related to heart failure. Cytology pending. She does feel better after thoracentesis. 4. Hypertension: Currently suboptimally controlled. Toprol on hold. Norvasc has been uptitrated. 5. Abnormal EKG with right bundle branch block and left anterior fascicular block. Brief second degree heart block. Stop BB. Continue telemetry. 12/22/18 16:09 Subjective: She only has chest pain when she coughs. Coughing is less. Overall she feels quite a bit better after thoracentesis yesterday. No dyspnea. She is not lightheaded. Per her daughter, she has a good appetite. Reviewed/Discussed With: family Objective: Vital Signs (8 Hrs) Temp Pulse Resp BP Pulse Ox 12/22/18 13:23 36.0 C 67 18 125/62 H 96 12/22/18 08:00 37.2 C 63 11 L 184/68 H 99 Intake/Output (24 Hrs) 12/21/18 12/22/18 12/23/18 05:59 05:59 05:59 Intake Total 200 920 Output Total 700 Balance 200 220 Intake: Oral (ml) 200 920 Output: Thoracentesis 700 Other: Weight 51.9 kg Number of Voids Toilet 2 Number of Stools Incontinence 1 Toilet 1 No acute distress. Appears comfortable Regular rate and rhythm without murmur rub gallop Slightly decreased breath sounds left base. No wheezes or rales. No lower extremity edema Result Diagrams: 12/22/18 03:40 12/22/18 03:40 Cardiac Labs: Cardiac Lab Results (72 Hrs) 12/20/18 12/20/18 12/19/18 13:38 05:10 21:00 Troponin I 1.110 H 1.120 H 0.984 H Telemetry: Sinus rhythm. Short periods of what appears to be Second degree type 2 heart block. ICD10 Worksheet Patient Problems: Problems Problem Status Onset Chronic kidney disease, stage IV (severe) Acute CHF (congestive heart failure) Acute Edema Acute Chronic Disease Mgmt/Transitional Care Acute Altered mental status Acute Delirium Acute Palliative care encounter Acute Renal failure Acute Pleural effusion Acute
--- NOTE | 2018-12-22 15:48 | ASMTCMCOM ---
CM Note CM Note Notes: Spoke with PT regarding their recommendation of home health care, with a focus on safety assessment and stair training. Spoke with patient's daughter- in- law who tells me they have [facility] past. A referral has been sent to [facility] per Robi's approval. CM will follow. Date Signed: 12/22/2018 03:47 PM Electronically Signed By:Kiara Sylvester LCSW
--- NOTE | 2018-12-22 16:52 | HOSPPROG ---
Hospitalist Progress Note Assessment/Plan: * Acute respiratory failure -presented 60% RA with tachypnea * Pneumonia with parapneumonic effusion -s/p thoracentesis (exudate) - cytology pending -s/p 5 days abx * Acute on chronic diastolic CHF -due to missed HD -volume removal with dialysis * ESRD -HD * Non-STEMI -stress test with minimal ischemia -med mgmt per Dr. Godwin * Brief transient 2nd degree HB, type II -DC beta-bel and monitor * Metabolic encephalopathy -resolved * DM II * Metastatic breast cancer -last PET was stable Subjective: Feeling much better Objective: Vital Signs Temp Pulse Resp BP Pulse Ox 36.6 C 76 19 152/66 H 100 12/22/18 16:45 12/22/18 16:45 12/22/18 16:45 12/22/18 16:45 12/22/18 16:45 Microbiology 12/21/18 13:00 Gram Stain - Final Thoracic Fluid - Aspirate Laboratory Results 12/22/18 03:40 12/22/18 03:40 12/21/18 12/22/18 12/23/18 05:59 05:59 05:59 Intake Total 200 920 700 Output Total 700 Balance 200 220 700 PT 14.7 SEC (12.0-15.0) 12/20/18 00:28 INR 1.13 (0.83-1.16) 12/20/18 00:28 CT chest - bilateral effusions, R>L CXR viewed, my personal interpretation is - minimal residual effusion post thora - Physical Exam Constitutional: no apparent distress, appears nourished, not in pain Cardiovascular: regular rate and rhythym, no murmur, rub, or gallop Respiratory: no respiratory distress, no rales or rhonchi, clear to auscultation Gastrointestinal: normoactive bowel sounds, soft, non-tender abdomen, no palpable masses Skin: no rashes or abrasions, no fluctuance, no induration Neurologic: AAOx3, sensation intact bilaterally Psychiatric: interacting appropriately, not anxious, not encephalopathic, thought process linear ICD10 Worksheet Patient Problems: Problems Problem Status Onset Chronic kidney disease, stage IV (severe) Acute CHF (congestive heart failure) Acute Edema Acute Chronic Disease Mgmt/Transitional Care Acute Altered mental status Acute Delirium Acute Palliative care encounter Acute Renal failure Acute Pleural effusion Acute
[2018-12-22] MEDS ORDERED: LIDOCAINE 1% *Not for Epidural 20 ML MDV ONE (17:00)
[2018-12-22] MEDS ORDERED: GABAPENTIN 100 MG CAP PO SCH (21:00)
[2018-12-23] MEDS ORDERED: CEPACOL LOZENGE PO PRN (04:18)
--- NOTE | 2018-12-23 05:51 | SOAPPROG ---
SOAP Progress Note Assessment/Plan: Assessment: #ESRD- [facility] -frequently misses HD as outpt -last HD Tuesday, next run likely Tuesday-- assess daily #abnormal EKG and +troponin -stress test minimal ischemia, plans for medical management (cardiology note reviewed and appreciated) -off bblocker due to transient 2HB -BP good control currently #Metastatic breast CA -ongoing f/u oncology- daughter reports recent PET was stable #pleural effusion -s/p thoracentesis 12/21- exudative, cultures NGTD and awaiting cytology #anemia CKD- -hb at goal -need to clarify if receiving TAMARA as outpt given malignancy #MBD of CKD -phos at goal, renal diet when taking po -not on binder #UTI -GNR in culture, blood Cx NGTD -on ceftriaxone 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 HD yesterday ok. Stress test mild ischemia. Objective: Vital Signs Temp Pulse Resp BP Pulse Ox 37.1 C 63 20 125/46 H 100 12/22/18 23:09 12/22/18 23:09 12/22/18 23:09 12/22/18 23:09 12/22/18 23:09 Microbiology 12/21/18 13:00 Gram Stain - Final Thoracic Fluid - Aspirate Laboratory Results 12/22/18 03:40 12/23/18 04:10 12/21/18 12/22/18 12/23/18 05:59 05:59 05:59 Intake Total 200 920 700 Output Total 700 2500 Balance 200 220 -1800 PT 14.7 SEC (12.0-15.0) 12/20/18 00:28 INR 1.13 (0.83-1.16) 12/20/18 00:28 Physical Exam - Physical Exam General Appearance: alert, no apparent distress, other (appears comfortable lying in bed, on O2 by NC) EENT: other (mmm) Neck: supple Respiratory: crackles (L side crackles at base otherwise clear) Cardiac/Chest: regular rate, rhythm, other (no rub) Abdomen: normal bowel sounds, non-tender, soft Skin: warm/dry Extremities: other (no edema, LUE AVF +thrill/bruit) Neuro/Psych: alert, oriented x 3 ICD10 Worksheet Patient Problems: Problems Problem Status Onset Chronic kidney disease, stage IV (severe) Acute Pleural effusion Acute Renal failure Acute Altered mental status Acute CHF (congestive heart failure) Acute Chronic Disease Mgmt/Transitional Care Acute Delirium Acute Edema Acute Palliative care encounter Acute
[2018-12-23] MEDS ORDERED: PANTOPRAZOLE SODIUM 40 MG TAB PO SCH (09:00)
[2018-12-23] MEDS: INSULIN LISPRO 100 UNIT/ML SC SCH (09:50)
[2018-12-23] MEDS: DOXYCYCLINE HYCLATE 100 MG CAP/TAB PO SCH (10:03)
[2018-12-23] MEDS: ATORVASTATIN CALCIUM 20 MG TAB PO SCH (10:03)
[2018-12-23] MEDS: ASPIRIN 81 MG CHEWABLE TAB PO SCH (10:03)
--- NOTE | 2018-12-23 10:48 | PDCARPN ---
Cardiology Progress Note Assessment/Plan: Assessment/plan: 83-year-old female with coronary artery disease ( calcifications seen on chest CT); end-stage renal disease on hemodialysis, history of breast cancer; recurrent left pleural effusion (followed by Dr. 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 She was admitted on 12/19 with weakness and volume overload having missed dialysis the week prior. There is also some question of UTI and/or pneumonia. During her evaluation she was found to have recurrent left pleural effusion that has now been drained. Echocardiogram shows mildly depressed ejection fraction 45% with mild inferoseptal hypokinesis. Peak troponin 1.1. 1. Non ST-elevation NM and new decrement in ejection fraction: She does have coronary disease on the basis of coronary artery calcification. She is currently without cardiac symptoms and EKG nonischemic. Her MPI study 12/22 ( personally reviewed by me) shows small septal infarct without ischemia. Would favor ongoing medical management of her coronary disease/non STEMI. She is now on aspirin, statin. Norvasc for HTN. Did not tolerate Toprol (second degree HB). 2. End-stage renal disease on hemodialysis: Her volume status is managed by dialysis. long discussion with patient, daughter translating, and Dr. Landin. patient often feels very ill with diarrhea and vomiting after HD. The patient thinks this is related to an IV injection she receives during HD, but she is not sure what this is. For this reason, she frequently skips dialysis. We emphasized that she needs to attend dialysis regularly because when she misses dialysis she ends up in the hospital with recurrent pleural effusion volume overload. 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 I think it is very reasonable to consider outpatient palliative care consult to better understand the patient's goals of care. 3. Pleural effusion, left sided and recurrent: This seems to be related to heart failure and missing dialysis. Cytology is negative. She has had thoracentesis in the past. 4. Hypertension: Now well controlled on high-dose amlodipine. Could add lisinopril in the future if more blood pressure management is needed. 5. Abnormal EKG with right bundle branch block and left anterior fascicular block. Brief second degree heart block. Sick sinus syndrome. She is not a candidate for beta-bel therapy. I left the patient and her daughter know that given her conduction system disease she may ultimately require pacemaker. She has not had evidence of symptomatic bradyarrhythmias at home. The patient is adamant that if a pacemaker is warranted she would not want this and would rather . At this point, she does appears stable from a cardiovascular standpoint for discharge. Please follow-up with me as outpatient. Greater than 45 min spent in chart review, telemetry review, direct patient care and discussion, discussion with Dr. Landin. 12/23/18 10:55 Subjective: She is feeling fairly well. Appetite is good. She has back pain when she coughs but denies anginal chest pain. She denies dyspnea. Her daughter corroborates that she does not get dizzy, faint, or have falls at home. Reviewed/Discussed With: family, hospitalist Time Spent with Patient: greater than 25 minutes Time Spent with Patient: Greater than 25 minutes spent on this patients care, greater than 50% of time spent counseling, educating, and coordinating care regarding the above mentioned plan. Objective: Vital Signs (8 Hrs) Temp Pulse Resp BP Pulse Ox 12/23/18 08:00 36.7 C 67 22 H 130/71 H 99 12/23/18 04:00 37.0 C 69 20 131/69 H 96 Intake/Output (24 Hrs) 12/22/18 12/23/18 12/24/18 05:59 05:59 05:59 Intake Total 920 850 Output Total 700 2500 Balance 220 -1650 Intake: Oral (ml) 920 850 Output: Dialysis Fluid Removed 2500 Thoracentesis 700 Other: Weight 51.9 kg 49.9 kg Number of Voids Toilet 2 Number of Stools Incontinence 1 Toilet 1 No acute distress. Sitting up in bed eating. Regular rate and rhythm without murmur rub gallop Decreased breath sounds at both bases, rales at the left. No lower extremity edema Result Diagrams: 12/22/18 03:40 12/23/18 04:10 Cardiac Labs: Cardiac Lab Results (72 Hrs) 12/20/18 13:38 Troponin I 1.110 H EKG: From earlier this morning reviewed: Sinus rhythm with first-degree AV block. PVCs. Right bundle branch block and left anterior fascicular block. Telemetry: Reviewed in detail. Mostly sinus rhythm. Brief periods of sinus arrest with 2 sec pauses. She also occasionally has PACs with a pause and ventricular escape. ICD10 Worksheet Patient Problems: Problems Problem Status Onset Chronic kidney disease, stage IV (severe) Acute CHF (congestive heart failure) Acute Edema Acute Chronic Disease Mgmt/Transitional Care Acute Altered mental status Acute Delirium Acute Palliative care encounter Acute Renal failure Acute Pleural effusion Acute
--- NOTE | 2018-12-23 10:57 | PDIAF ---
- Diagnosis Diagnosis: pneumonia Code Status: Full Code - Medication Management Discharge Medications: electronically signed and located in the Home Medication List. - Orders Services needed: Home Care, Registered Nurse, Certified Machine Heel Sprayer, Physical Therapy, Occupational Therapy Home Care Face to Face: I certify that this patient was under my care and that I had the required [id number] encounter meeting the encounter requirements on the discharge day. My findings support the fact that the patient is homebound as defined in Home Care Face to Face Continued: CMS Chapter 7 Medicare Benefits Manual 30.1.1 , The condition of the patient is such that there exists a normal inability to leave home and consequently, leaving home would require a considerable and taxing effort. Isolation Type: None Additional Instructions: Outpatient palliative care consultation Do not skip hemodialysis Discuss with your kidney doctor options to help you tolerate dialysis better Return to ER for passing out or lightheaded episodes - Follow Up Care Current Providers and Referrals: Phani Uribe, DO [Primary Care Provider] - As per Instructions
--- NOTE | 2018-12-23 11:55 | ASMTDCNOTE ---
Case Management Discharge Discharge Order Complete? Answers: Yes Patient to Obtain Answers: via Family Medications Transportation Arranged Answers: Family/Friends Case Management Transport Answers: Yes Form Complete Faxed Final Orders Answers: Yes Agency/Facility Transfer Answers: Yes Report Printed & Faxed to Receiving Agency Family Notified Answers: Yes Discharge Comments Notes: Pt id d/peter home with [facility]. Date Signed: 12/23/2018 11:55 AM Electronically Signed By:Jaclyn Snowden
[2018-12-23 12:15] VITALS: BP 126/69
--- NOTE | 2018-12-24 04:21 | GDS ---
[f rep st] DISCHARGE SUMMARY DISCHARGE DIAGNOSES: 1. Acute respiratory failure. 2. Pneumonia with parapneumonic effusion. 3. Acute on chronic diastolic congestive heart failure. 4. End-stage renal disease. 5. Non-ST elevation myocardial infarction. 6. Second-degree heart block, type 2. Pacemaker declined. 7. Metabolic encephalopathy. 8. Diabetes type 2. 9. Metastatic breast cancer. HISTORY: The patient is an 83-year-old female on dialysis although, she skips dialysis frequently be cause it causes severe nausea and vomiting predictably after she arrives home. She presented volume overloaded with CHF exacerbation, pleural effusion, and respiratory failure. She did have an element of pneumonia as well. Thoracentesis showed pleural effusion was exudative. She received 5-day cour se of IV antibiotics. Volume was removed with dialysis. She was advised regarding compliance with d ialysis. However, she will need to discuss with her database report writer whether or not any changes can be m elma to her standard dialysis orders to improve the severe symptoms that she has with each session. She also had a troponin elevation consistent with non-ST elevation MD. Stress test showed minimal is chemia, and Dr. Godwin thought she would do best with medical management. On her telemetry, we did see second-degree heart block, type 2; although she has absolutely no sympto ms and never feels dizzy or lightheaded with that. She is declining a pacemaker at this time, but brisa keller is also asymptomatic and perhaps would be agreeable as this continues to degenerate and starts to c ause her severe difficulties. Recommend discontinuation all beta blockers. DISCHARGE MEDICATIONS: Please see computerized record for full detailed list. New medication: 1. Lipitor 20 mg p.o. daily. 2. Aspirin 81 mg p.o. daily. ADDITIONAL DISCHARGE INSTRUCTIONS: 1. Outpatient palliative care consultation. 2. Recommendation to not skip hemodialysis and work with your database report writer to discuss options to hel p tolerate dialysis better. 3. Follow up with Dr. Godwin, 2 weeks. Greater than 30 minutes' time was spent in arranging this discharge. Patient was seen and examined b y me on the day of discharge. /[id number]/MODL
--- NOTE | 2018-12-25 09:10 | ASDISCHSUM ---
Discharge Information Plan Status:Home with Home Health Medically Cleared to Leave:12/22/2018 Discharge Date:12/23/2018 01:00 PM CM D/C Disposition:Home Health Service ADT D/C Disposition:Home Health Service Projected Discharge Date:12/23/2018 11:00 AM Transportation at D/C: Discharge Delay Reason: Follow-Up Date:12/23/2018 11:00 AM Discharge Slot: Final Diagnosis: Placement Information Referral Type:*Home Health Care Services Referral ID:[id number] Provider Name:[facility] Address 1:[address] Phone Number: Address 2: Fax Number: City:[place] Selection Factors: State:[place] Patient Contact Information Contact Name:ANG Relationship:Other Address:[address] Work Phone: City:[facility] Phone: [facility] Code:[place] [address] Email: Financial Information Financial Class:Medicare Advantage Plans Primary Plan Desc:[facility] [employer] Primary Plan Number:[id number] Secondary Plan Desc:[place] Secondary Plan Number:[id number] Assessment Information LACE LACE Acuity / Level of Answers: Yes Care: Did the patient have an inpatient admission? Comorbidities - select Answers: Congestive heart failure all that apply Diabetes (uncontrolled or controlled) Moderate or severe liver or renal disease Opioid dependence / Chronic pain Other Notes: HTN; HLD # of Emergency department Answers: 1-2 visits in the last 6 months Score: 16 Date Signed: 12/20/2018 09:35 AM Electronically Signed By:Ina Richardson [facility] CM Progress Note CM Note CM Note Notes: Pt is an 83 yo F, presents with pleural effusion, dyspenea, renal failure and positive trop. Pt's primary language is [place], speaks limited Indian. Chart reviewed and pt discussed in rounds for discharge planning. Pt has a supportive family. PT evals pending. Plan: TBD Date Signed: 12/20/2018 02:27 PM Electronically Signed By:JAS Hussein [facility] CM Progress Note CM Note CM Note Notes: Spoke with PT regarding their recommendation of home health care, with a focus on safety assessment and stair training. Spoke with patient's daughter- in- law who tells me they have [facility] past. A referral has been sent to [facility] per Robi's approval. CM will follow. Date Signed: 12/22/2018 03:47 PM Electronically Signed By:Kiara Sylvester LCSW Case Management Discharge Plan Note Case Management Discharge Discharge Order Complete? Answers: Yes Patient to Obtain Answers: via Family Medications Transportation Arranged Answers: Family/Friends Case Management Transport Answers: Yes Form Complete Faxed Final Orders Answers: Yes Agency/Facility Transfer Answers: Yes Report Printed & Faxed to Receiving Agency Family Notified Answers: Yes Discharge Comments Notes: Pt id d/peter home with [facility]. Date Signed: 12/23/2018 11:55 AM Electronically Signed By:Jaclyn Snowden Intervention Information
--- NOTE | 2018-12-26 16:31 | CPEKG ---
Test Reason : PRN new onset of chest pain Blood Pressure : / mmHG Vent. Rate : 086 BPM Atrial Rate : 089 BPM P-R Int : 225 ms QRS Dur : 119 ms QT Int : 420 ms P-R-T Axes : 083 -56 109 degrees QTc Int : 503 ms Sinus rhythm atrial-paced complexes Prolonged [place] interval Probable left atrial enlargement Right bundle branch block Left anterior fascicular block Confirmed by Sage Carrera ([id number]) on 12/26/2018 4:30:57 PM Referred By: Pepe Morfin Confirmed By:Sage Carrera
--- NOTE | 2018-12-27 11:46 | CPEKG ---
Test Reason : OPEN Blood Pressure : / mmHG Vent. Rate : 060 BPM Atrial Rate : 061 BPM P-R Int : 238 ms QRS Dur : 123 ms QT Int : 535 ms P-R-T Axes : -45 -61 -28 degrees QTc Int : 535 ms Sinus or ectopic atrial rhythm Ventricular trigeminy Prolonged [place] interval Probable left atrial enlargement Right bundle branch block LVH with IVCD and secondary repol abnrm Prolonged QT interval Confirmed by Sage Carrera ([id number]) on 12/27/2018 11:46:02 AM Referred By: Pepe Morfin Confirmed By:Sage Carrera
== END 2018-12-23 13:00 | disposition home health service (06) | DRG 280 ==
LOC: CED 12:05 → CEDHOLD 13:49 → F2W 15:45
PROVIDERS: ADMIT Internal Medicine; ATTEND Internal Medicine
PROC: 5A1D70Z Performance of Urinary Filtration, Intermittent, Less than 6 Hours Per Day (ICD-10-PCS; 2018-12-20)
PROC: 0W9B3ZX Drainage of Left Pleural Cavity, Percutaneous Approach, Diagnostic (ICD-10-PCS; principal; 2018-12-21)
DX: I21.4 Non-ST elevation (NSTEMI) myocardial infarction (principal); I13.2 Hypertensive heart and chronic kidney disease with heart failure and with stage 5 chronic kidney disease, or end stage renal disease; I50.33 Acute on chronic diastolic (congestive) heart failure; N18.6 End stage renal disease; J18.8 Other pneumonia, unspecified organism; J96.00 Acute respiratory failure, unspecified whether with hypoxia or hypercapnia; G93.41 Metabolic encephalopathy; J90 Pleural effusion, not elsewhere classified; N39.0 Urinary tract infection, site not specified; I44.1 Atrioventricular block, second degree; E11.9 Type 2 diabetes mellitus without complications; Z99.2 Dependence on renal dialysis; I25.10 Atherosclerotic heart disease of native coronary artery without angina pectoris
CPT/HCPCS: 71046-PO; 80053-ER; 83605-ER; 84484-ER; 85520-90; 96365; 97161-GP; A9500; J0696; J0885; J1644; J1815; J2405; J2785; Q9967

== ENCOUNTER 2019-04-04 10:45 | Emergency (ER) | payer OTHER, MEDICAID | END 2019-04-04 14:05 | disposition home or self-care (01) | LOC: CED 10:45 ==

== ENCOUNTER 2019-04-08 18:22 | Emergency (ER) | payer OTHER, MEDICAID | END 2019-04-08 19:13 | disposition home or self-care (01) ==

== ENCOUNTER → 2019-04-10 | Outpatient (CLI) | payer OTHER, MEDICAID | LOC: CIMAGING 14:48 ==